=== PATIENT | male | born 2000 | race Caucasian/White ===

== ENCOUNTER 2022-05-23 22:09 | Emergency (ER) | payer BC ==
[~2022-05-23] VITALS: Ht 182.9 cm; Wt 97.7 kg
[2022-05-23 22:20] VITALS: TEMP 98.2
[2022-05-23] MEDS ORDERED: NAPROSYN500 MG PO (22:58)
[2022-05-23] MEDS ORDERED: DOXYCYCLINE HY100 MG PO (22:58)
[2022-05-23 23:05] VITALS: BP 133/79; PULSE 58
== END 2022-05-23 23:05 | disposition home or self-care (01) ==
LOC: COL.ER 22:09
DX: L03.211 Cellulitis of face (principal); F17.200 Nicotine dependence, unspecified, uncomplicated; Z28.311 Partially vaccinated for COVID-19